=== PATIENT | male | born 1995 | race Two or more races ===

== ENCOUNTER 2020-02-27 13:48 | Emergency (ER) | payer SELFPAY ==
[~2020-02-27] VITALS: Ht 180.3 cm; Wt 77.0 kg
[2020-02-27 16:37] LABS: BILIRUBIN,URINE NEGATIVE (NEG); CLARITY,URINE CLEAR; COLOR,URINE YELLOW; NITRITE,URINE NEGATIVE (NEG); PH,URINE 7.5 (<5.0-8.0); PROTEIN,URINE NEGATIVE (NEG-TRACE)
[2020-02-27 16:42] LABS: BACTERIA,URINE 0 /HPF (0-FEW); RBC,URINE 0 /HPF (0-2); SQUAMOUS EPITHELIAL CELL,UR OCC /LPF; WBC,URINE 0 /HPF (0-4)
--- NOTE | 2020-02-27 17:09 | RAD ---
EXAM: CHEST 1 VIEW History: Shortness of breath, cough COMPARISON: None available. TECHNIQUE: Single portable radiograph of the chest FINDINGS: The cardiac silhouette is unremarkable. The lungs are clear bilaterally. The costophrenic sulci are clear and well demarcated. IMPRESSION: No radiographic evidence of an acute cardiopulmonary process. Electronically signed by: Abdullahi Shahid MD (02/27/2020 5:06 PM) [id number]
--- NOTE | 2020-02-27 17:53 | PHYS DOC ---
Past Medical History Past Medical History: No Pertinent History (ESTELA MUSA DO) Past Surgical History: No Surgical History (ESTELA MUSA DO) Smoking Status: Current Some Day Smoker Alcohol Use: None (ESTELA MUSA DO) General Adult EDM: Chief Complaint: ABDOMINAL PAIN HPI: HPI: Patient is a 25 year old male who presented to ER today for evaluation of epigastric abdominal pain for about a week. Patient has been drinking alcohol with lemon. Patient has been exposed to coworkers who tested positive for COVID-19. Patient lives with her brother who tested positive COVID-19 as well. Denies any fever, no nausea vomiting. Patient does not speak Kinyarwanda, history was taken via [employer] by phone. (ESTELA MUSA DO) Review of Systems: Review of Systems: Constitutional: Denies fever or chills. [] Eyes: Denies change in visual acuity. [] HENT: Denies nasal congestion or sore throat. [] Respiratory: Denies cough or shortness of breath. [] Cardiovascular: Denies chest pain or edema. [] GI: Positive for epigastric abdominal pain, no nausea vomiting, no diarrhea. : Denies dysuria. [] Musculoskeletal: Denies back pain or joint pain. [] Integument: Denies rash. [] Neurologic: Denies headache, focal weakness or sensory changes. [] Endocrine: Denies polyuria or polydipsia. [] Lymphatic: Denies swollen glands. [] Psychiatric: Denies depression or anxiety. [] (ESTELA MUSA DO) Heart Score: Risk Factors: Risk Factors: DM, Current or recent (<one month) smoker, HTN, HLP, family history of CAD, obesity. Risk Scores: Score 0 - 3: 2.5% MACE over next 6 weeks - Discharge Home Score 4 - 6: 20.3% MACE over next 6 weeks - Admit for Clinical Observation Score 7 - 10: 72.7% MACE over next 6 weeks - Early Invasive Strategies (ESTELA MUSA DO) Current Medications: Current Medications Medications (Trade) Dose Ordered Sig/Huyen Start Time Stop Time Status Last Admin Dose Admin Famotidine (Pepcid Vial) 20 mg 1X ONCE 02/27/20 17:15 02/27/20 17:16 UNV (ESTELA MUSA DO) Physical Exam: PE: Constitutional: Well developed, well nourished, no acute distress, non-toxic appearance. [] HENT: Normocephalic, atraumatic, bilateral external ears normal, oropharynx moist, no oral exudates, nose normal. [] Eyes: PERRLA, EOMI, conjunctiva normal, no discharge. [] Neck: Normal range of motion, no tenderness, supple, no stridor. [] Cardiovascular:Heart rate regular rhythm, no murmur [] Lungs & Thorax: Bilateral breath sounds clear to auscultation [] Abdomen: Bowel sounds normal, soft, there is tenderness to palpation in epigastric area, no masses, no pulsatile masses. [] Skin: Warm, dry, no erythema, no rash. [] Back: No tenderness, no CVA tenderness. [] Extremities: No tenderness, no cyanosis, no clubbing, ROM intact, no edema. [] Neurologic: Alert and oriented X 3, normal motor function, normal sensory function, no focal deficits noted. [] Psychologic: Affect normal, judgement normal, mood normal. [] (ESTELA MUSA DO) Current Patient Data: Labs: Laboratory Tests Test 02/27/20 15:00 Urine Collection Type Unknown Urine Color Yellow Urine Clarity Clear Urine pH 7.5 (<5.0-8.0) Urine Specific [place] 1.020 (1.000-1.030) Urine Protein Negative mg/dL (NEG-TRACE) Urine Glucose (UA) Negative mg/dL (NEG) Urine Ketones (Stick) Negative mg/dL (NEG) Urine Blood Negative (NEG) Urine Nitrite Negative (NEG) Urine Bilirubin Negative (NEG) Urine Urobilinogen Dipstick 1.0 mg/dL (0.2 mg/dL) Urine Leukocyte Esterase Negative (NEG) Urine RBC 0 /HPF (0-2) Urine WBC 0 /HPF (0-4) Urine Squamous Epithelial Cells Occ /LPF Urine Bacteria 0 /HPF (0-FEW) Vital Signs: Vital Signs Date Time Temp Pulse Resp B/P (MAP) Pulse Ox O2 Delivery O2 Flow Rate FiO2 02/27/20 16:34 98.7 98 16 135/73 (93) 100 Room Air 98.7 (ESTELA MUSA DO) EKG: EKG: EKG was done at 1719, heart rate 86 bpm, no ST segment elevation, sinus rhythm. [] (ESTELA MUSA DO) Radiology/Procedures: Radiology/Procedures: [][facility] [address] [place] [address] IMAGING REPORT Signed PATIENT: LALY BALL EACCOUNT: [id number] : 1995 LOCATION: ER AGE: 25 SEX: M EXAM STATUS: REG ER ORD. PHYSICIAN: ESTELA MUSA DO REASON: COUGH, SOA PROCEDURE: CHEST AP ONLY EXAM: CHEST 1 VIEW History: Shortness of breath, cough COMPARISON: None available. TECHNIQUE: Single portable radiograph of the chest FINDINGS: The cardiac silhouette is unremarkable. The lungs are clear bilaterally. The costophrenic sulci are clear and well demarcated. IMPRESSION: No radiographic evidence of an acute cardiopulmonary process. Electronically signed by: Abdullahi Shahid MD (02/27/2020 5:06 PM) [id number] DICTATED and SIGNED BY: ABDULLAHI SHAHID MD DATE: 02/27/20 1706 (ESTELA MUSA DO) Impression: CT ABD/PELVIS Findings: There is no significant abnormality of the visualized lung bases. There is no significant abnormality of the liver, spleen, pancreas, adrenal glands. Both kidneys enhance without hydronephrosis. Gallbladder is present without obvious intraluminal abnormality by CT. Accurate evaluation of bowel is limited without oral contrast. There is no significant inflammatory change adjacent to the bowel. There is no evidence of bowel obstruction, free fluid, or free air. Appendix cannot be confidently identified. Urinary bladder is somewhat distended. There is bilateral L5 spondylolysis, negligible anterior spondylolisthesis at L5-S1. There is mild narrowing of the right L5-S1 neural foramen. Impression: 1. Appendix cannot be confidently identified to exclude acute appendicitis by imaging, although no significant inflammatory type change about the bowel. 2. There is negligible anterior spondylolisthesis at L5-S1 due to bilateral L5 spondylolysis. 3. Urinary bladder is somewhat distended. CXR FINDINGS: The cardiac silhouette is unremarkable. The lungs are clear bilaterally. The costophrenic sulci are clear and well demarcated. IMPRESSION: No radiographic evidence of an acute cardiopulmonary process. (CORTNEY WILKINS DO) Course & Med Decision Making: Course & Med Decision Making Pertinent Labs and Imaging studies reviewed. (See chart for details) (ESTELA MUSA DO) Course & Med Decision Making Patient CARE turned over to me by Dr. Musa at shift change. CT results do not show any acute process. Chest x-ray shows no acute cardiopulmonary process. Labs are within normal limits. Patient states that his pain in the epigastric region. We will treat for gastritis as patient has been drinking alcohol over the past weekend. Discussed results and plan of care with patient. Patient is instructed to follow up with PCP in one to 2 days. Appropriate discharge instructions given to patient to return to the ED or to seek immediate medical evaluation. Patient is instructed to return to the ED if symptoms worsen or if any concerns. (CORTNEY WILKINS DO) Dragon Disclaimer: Dragon Disclaimer: This electronic medical record was generated, in whole or in part, using a voice recognition dictation system. (ESTELA MUSA DO) Departure Departure Impression: Primary Impression: Abdominal pain Additional Impressions: Gastritis GERD (gastroesophageal reflux disease) Disposition: 01 HOME, SELF-CARE Condition: STABLE Referrals: NO PCP (PCP) Patient Instructions: Abdominal Pain, Gastritis, Adult, Gastroesophageal Reflux Disease, Adult Additional Instructions: Discussed results and plan of care with patient. Patient is instructed to follow up with PCP in one to 2 days. Appropriate discharge instructions given to patient to return to the ED or to seek immediate medical evaluation. Patient is instructed to return to the ED if symptoms worsen or if any concerns. Scripts Sucralfate (CARAFATE) 1 Gm Tablet 1 TAB PO QID for 30 Days, #120 TAB 0 Refills Prov: STEPHY WILKINSLI Negro DO 02/27/20 Famotidine (PEPCID) 20 Mg Tablet 20 MG PO HS for 14 Days, #14 TAB Prov: CORTNEY WILKINS E DO 02/27/20 Justicifation of Admission Dx: Justifications for Admission: Justification of Admission Dx: N/A (ESTELA MUSA DO) Justification of Admission Dx: No (CORTNEY WILKINS DO) Attending Signature Attending Signature I have participated in the care of this patient and I have reviewed and agree with all pertinent clinical information above including history, exam, and recommendations. (GOLLAPALCORTNEY MASTERS PETER T DO Feb 27, 2020 17:53 CORTNEY WILKINS DO Feb 27, 2020 18:19
[2020-02-27] MEDS ORDERED: FAMOTIDINE 20 MG/2 ML VIAL IVP ONE (18:15)
[2020-02-27 18:39] LABS: BASO % 0 % (0-3); EOS % 1 % (0-3); HEMATOCRIT 49.3 % (39.0-53.0); HEMOGLOBIN 17.2 g/dL (13.0-17.5); LYMPH # 1.9 x10^3/uL (1.0-4.8); LYMPH % 25 % (24-48); MEAN CORPUSCULAR HEMOGLOBIN 33 pg (25-35); MEAN CORPUSCULAR HGB CONC 35 g/dL (31-37); MEAN CORPUSCULAR VOLUME 93 fL (79-100); MONO # 0.7 x10^3/uL (0.0-1.1); MONO % 9 % (0-9); NEUT # 4.9 x10^3/uL (1.8-7.7); NEUT % 65 % (31-73); PLATELET COUNT 221 x10^3/uL (140-400); RED BLOOD COUNT 5.29 x10^6/uL (4.30-5.70); RED CELL DISTRIBUTION WIDTH 13.3 % (11.5-14.5); WHITE BLOOD COUNT 7.6 x10^3/uL (4.0-11.0)
[2020-02-27 18:48] LABS: PROTHROMBIN TIME PATIENT 12.4 SEC (11.7-14.0)
[2020-02-27 19:01] LABS: CALCIUM 8.7 mg/dL (8.5-10.1); GFR 89.6; POTASSIUM 4.1 mmol/L (3.5-5.1)
[2020-02-27 19:08] LABS: ALBUMIN 4.1 g/dL (3.4-5.0); ALBUMIN/GLOBULIN RATIO 1.2 (1.0-1.7); TOTAL BILIRUBIN 0.3 mg/dL (0.2-1.0); TOTAL PROTEIN 7.6 g/dL (6.4-8.2)
[2020-02-27] MEDS ORDERED: IOHEXOL 300 MG/ML 100ML VIAL. IV ONE (19:30)
--- NOTE | 2020-02-27 19:56 | RAD ---
CT abdomen and pelvis with contrast History: Abdominal pain Technique: After the administration of intravenous contrast, CT imaging was performed of the abdomen and pelvis. No oral contrast was given. Multiplanar images are reviewed. Exposure: One or more of the following individualized dose reduction techniques were utilized for this examination: 1. Automated exposure control 2. Adjustment of the mA and/or kV according to patient size 3. Use of iterative reconstruction technique. Comparison: None Findings: There is no significant abnormality of the visualized lung bases. There is no significant abnormality of the liver, spleen, pancreas, adrenal glands. Both kidneys enhance without hydronephrosis. Gallbladder is present without obvious intraluminal abnormality by CT. Accurate evaluation of bowel is limited without oral contrast. There is no significant inflammatory change adjacent to the bowel. There is no evidence of bowel obstruction, free fluid, or free air. Appendix cannot be confidently identified. Urinary bladder is somewhat distended. There is bilateral L5 spondylolysis, negligible anterior spondylolisthesis at L5-S1. There is mild narrowing of the right L5-S1 neural foramen. Impression: 1. Appendix cannot be confidently identified to exclude acute appendicitis by imaging, although no significant inflammatory type change about the bowel. 2. There is negligible anterior spondylolisthesis at L5-S1 due to bilateral L5 spondylolysis. 3. Urinary bladder is somewhat distended. Electronically signed by: Agustin De La Torre MD (02/27/2020 7:53 PM) [facility]OSPITALGreg
[2020-02-27] MEDS ORDERED: SUCR1TAB35 PO (20:39)
[2020-02-27] MEDS ORDERED: FAMO-63 PO (20:39)
[2020-02-27 20:45] VITALS: BP 126/81
--- NOTE | 2020-02-28 14:50 | EKG ---
[facility] [address] [place] [address] Test Date: 2020-02-27 Test Time: 17:19:10 Pat Name: LALY BALL Department: Room: Gender: M [employer]: : 1995 Requested By: CORTNEY WILKINS Order Number: [id number] Reading MD: Measurements Intervals Taylor Rate: 86 P: 64 MT: 150 QRS: 104 QRSD: 96 T: 31 QT: 328 QTc: 395 Interpretive Statements SINUS RHYTHM RIGHTWARD AXIS INCOMPLETE RIGHT BUNDLE BRANCH BLOCK OTHERWISE NORMAL ECG RI6.02 No previous ECG available for comparison
== END 2020-02-27 20:54 | disposition home or self-care (01) ==
LOC: ER 13:48
DX: K29.70 Gastritis, unspecified, without bleeding (principal); K21.9 Gastro-esophageal reflux disease without esophagitis; U07.1 COVID-19; I45.10 Unspecified right bundle-branch block; F17.200 Nicotine dependence, unspecified, uncomplicated
CPT/HCPCS: 36415; 71045; 74177; 80053; 81001; 83690; 84484; 85025; 85610; 85730; 93005; 96374; 99285; C9803; G0480; J3490; U0003